=== PATIENT | male | born 1980 | race Two or more races ===

== ENCOUNTER 2024-06-13 13:25 | Emergency (ER) | payer OTHER ==
[~2024-06-13] VITALS: Ht 180.3 cm; Wt 88.0 kg
[2024-06-13] MEDS ORDERED: AVAPRO150 MG PO (13:59)
[2024-06-13] MEDS ORDERED: HYDROCHLOROTH12.5 M2 PO (14:00)
[2024-06-13] MEDS ORDERED: ERYTHROMYCIN ETHYLSUCCINATE 400 MG/5 ML PO STA (14:31)
[2024-06-13] MEDS ORDERED: BACITRACIN-POL3.5 GM OP (14:35)
[2024-06-13] MEDS ORDERED: ANTIBIOTIC28.4 GM COM (14:43)
== END 2024-06-13 16:14 | disposition home or self-care (01) ==
LOC: ER 13:26
DX: B99.9 Unspecified infectious disease (principal)

== ENCOUNTER → 2025-01-18 | Emergency (ER) | payer OTHER ==
[~2025-01-18] VITALS: Ht 180.3 cm; Wt 88.5 kg
[~2025-01-18] MED LIST: ANTIBIOTIC28.4 GM COM; AVAPRO150 MG PO; BACITRACIN-POL3.5 GM OP; HYDROCHLOROTH12.5 M2 PO; KETOROLAC TROMETHAMINE 60 MG VIAL IM ONE; ORPHENADRINE CITRATE 30 MG/ML AMPUL IM STA; ORPHENADRINE CITRATE 30 MG/ML AMPUL ONE
== END | disposition home or self-care (01) ==
LOC: ER 12:45
DX: M54.2 Cervicalgia (principal); I10 Essential (primary) hypertension; Z88.0 Allergy status to penicillin